=== PATIENT | female | born 1985 | race Caucasian/White ===

== ENCOUNTER 2018-07-24 10:15 | Inpatient (IN) | payer OTHER ==
[~2018-07-24] VITALS: Ht 160 cm; Wt 3.2 kg
[2018-07-24] MEDS ORDERED: ONE-A-DAY PREN1 EAC1 PO (12:27)
== END 2018-08-01 17:20 | disposition home or self-care (01) | DRG 785 ==
LOC: O/R 07-29 06:58 → OB/GYN 07-29 06:58
PROVIDERS: Obstetrics & Gynecology
PROC: 0UL70ZZ Occlusion of Bilateral Fallopian Tubes, Open Approach (ICD-10-PCS; 2018-07-29)
PROC: 4A1HXCZ Monitoring of Products of Conception, Cardiac Rate, External Approach (ICD-10-PCS; 2018-07-29)
PROC: 10D00Z1 Extraction of Products of Conception, Low, Open Approach (ICD-10-PCS; principal; 2018-07-29 07:00)
DX: O34.211 Maternal care for low transverse scar from previous cesarean delivery (principal); O75.82 Onset (spontaneous) of labor after 37 completed weeks of gestation but before 39 completed weeks gestation, with delivery by (planned) cesarean section; Z3A.39 39 weeks gestation of pregnancy; Z37.0 Single live birth; Z30.2 Encounter for sterilization